=== PATIENT | male | born 1995 | race Two or more races ===

== ENCOUNTER → 2018-03-30 | Outpatient (CLI) | payer OTHER ==
[~2018-03-30] MED LIST: IOPAMIDOL 76% 150 ML INFUS BTL 150 ML ONE
--- NOTE | 2018-03-30 14:03 | RADIOLOGY IMAGING REPORT ---
FACILITY: [facility] PATIENT NAME: Jeferson Holman : 1995 MR: [id number] V: [id number] EXAM DATE: ORDERING PHYSICIAN: CHIKIS VIEYRA TECHNOLOGIST: Location: [facility] Patient: Jeferson Holman : 1995 Visit/Account:[id number] Date of Sevice: 03/30/2018 CT ABDOMEN WITH IV CONTRAST CLINICAL INFORMATION: Portal vein thrombosis TECHNIQUE: Axial CT images were obtained through the abdomen during injection of nonionic iodinated intravenous contrast. Reformatted coronal and sagittal images were also obtained.Dose Lowering Techn ique One of the following dose optimization techniques was utilized in the performance of this exam: Autom ated exposure control; adjustment of the mA and/or kV according to the patient's size; or use of an i terative reconstruction technique. Specific details can be referenced in the facility's radiology C T exam operational policy. CONTRAST: 70 mL of Isovue 370 IV contrast. COMPARISON: None available.. FINDINGS: Lower lung grijalva: Limited views lower lung field are unremarkable. Liver: No focal parenchymal abnormality of the liver. Biliary: Gallbladder appears unremarkable as well as the intra and extra hepatic biliary system. Pancreas: There are numerous opacified collateral vessels seen about the head the pancreas Spleen: Normal appearance. Adrenal glands: Unremarkable. Kidneys / retroperitoneum: No evidence of nephrolithiasis or hydronephrosis Bowel / peritoneum / mesenteries: The visualized small and large bowel appear unremarkable. Lymph node assessment: No pathologic adenopathy identified. Vessels: The portal veins appear well opacified with contrast as does the splenic vein. A normal-radha earing superior mesenteric vein is not identified. There are numerous pacified collateral vessels se en within the mesentery in particular prominent about the head of the pancreas Musculoskeletal / Body wall: No acute or aggressive osseous abnormality. IMPRESSION: 1. The portal vein and splenic vein appear well opacified with contrast. A normal-appearing SMV is not seen however there are numerous collateral vessels opacified throughout the mesentery and are particularly prominent about the head of the pancreas . 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 Report Dictated By: Marisol Tobias MD at 03/30/2018 1:45 PM Report E-Signed By: Marisol Tobias MD at 03/30/2018 1:59 PM WSN:[id number]
== END ==
LOC: CT 10:49
PROVIDERS: ATTEND Internal Medicine Medical Oncology
DX: I81 Portal vein thrombosis (principal)
CPT/HCPCS: 74160; Q9967